=== PATIENT | male | born 1935 | race Caucasian/White ===

== ENCOUNTER 2018-06-03 18:57 | Emergency (ER) | payer MEDICARE, BC ==
--- NOTE | 2018-06-03 19:07 | UC ---
Head Injury HPI - HPI Summary HPI Summary: This is breanne Landis documenting for attending Fnrocío Malcolm MD. This patient is a 83 year old M presenting to [facility] with a chief complaint of head injury since 18:30 today. The patient reports that he slipped on his attic stairs and kit his head on the door frame. The patient denies any loss of consciousness. Patient reports a laceration to the left side of his forehead. The patient rates the pain 0/10 in severity. Symptoms aggravated by nothing. Symptoms alleviated by nothing. Patient denies any vision changes. He feels totally fine and denies any other complaints. The patient takes Doxazosin and Atenolol. - History Of Current Complaint Stated Complaint: HEAD INJURY Time Seen by Provider: 06/03/18 18:58 Hx Obtained From: Patient Onset/Duration: Sudden Onset, Lasting Hours - 1 hour, Still Present Severity Currently: None Pain Intensity: 0 Pain Scale Used: 0-10 Numeric Aggravating Factor(s): Nothing Alleviating Factor(s): Nothing Associated Signs And Symptoms: Negative: LOC (Time In Secs./Mins/Hrs), LOC Duration Unknown - Allergies/Home Medications Allergies/Adverse Reactions: Allergies Allergy/AdvReac Type Severity Reaction Status Date / Time No Known Allergies Allergy Verified 06/03/18 19:06 Home Medications: Home Medications Atenolol TAB* [Tenormin TAB* 25 MG] 06/03/18 [History] Doxazosin TAB* [Cardura TAB*] 06/03/18 [History] PMH/Surg Hx/FS Hx/Imm Hx Previously Healthy: Yes Other Endocrine History: negative Cardiovascular History: Hypertension Other Cardiovascular History: negative Other Respiratory History: negative Other GI/ History: negative Other Neurological History: negative Other Psychological History: negative Other Cancer History: negative - Surgical History Surgical History: None - Family History Known Family History: Positive: None - patient denies FHx Review of Systems Constitutional: Negative - negative fever Skin: Other - laceration to left forehead Eyes: Negative - negative vision changes ENT: Negative Respiratory: Negative Cardiovascular: Negative Gastrointestinal: Negative Genitourinary: Negative Motor: Negative Neurovascular: Negative Musculoskeletal: Negative Neurological: Negative - negative head pain Psychological: Negative Is Patient Immunocompromised?: No All Other Systems Reviewed And Are Negative: Yes Physical Exam - Summary Physical Exam Summary: Appearance: Well-Appearing, No Pain Distress, Well-Nourished, alert and oriented 3 Eyes: conjunctiva clear, no discharge HEENT: About a 4 cm laceration on the left forehead noted .EOMI and PERRLA intact. Hearing grossly normal, no muffled/hoarse voice. Neck: Normal, Supple Respiratory/Lung Sounds: Lungs clear, Normal breath sounds, No respiratory distress, No accessory muscle use Cardiovascular: RRR, No murmur Abdomen: Nontender, Soft, no guarding, not distended Bowel Sounds: Present Musculoskeletal: Normal Neurological: Cranial nerves intact ,muscle tone normal, motor and sensory intact. .GCS 15 Psychiatric:Normal, age appropriate behavior Skin: Normal, Warm, Dry, Normal color Triage Information Reviewed: Yes Vital Signs Reviewed: Yes Procedures - Laceration/Wound Repair #1 Location: head - forehead Laceration/Wound Explored: clean, no foreign body removed Closure: Single Layer Sterile Dressing Applied?: Yes 1 Location: head - left forehead Description: Linear - slightly rregular Anesthesia: Local, 2.0%, Lido Length, Depth and Shape: 4 cm ,2 mm deep Betadine Prep?: Yes Irrigated w/ Saline (ccs): 200 Laceration/Wound Explored: clean, no foreign body removed Closure: Single Layer - 6 syutures applied Debridement: none Suture Type: Nylon Head Injury Course/Dx - Course Course Of Treatment: During the visit today, we closed the laceration with 6 nylon sutures patient tolerated the procedure well,. We discussed the findings and further plan. I will prescribe the medication to the pharmacy . Nurse will call for the tetanus status and updated accordingly. Patient expressed understanding . - Differential Dx/Diagnosis Provider Diagnoses: head injury. laceration Discharge - Sign-Out/Discharge Documenting (check all that apply): Patient Departure - Discharge Plan Condition: Stable Disposition: HOME Prescriptions: Cephalexin CAP* [Keflex CAP*] 500 mg PO BID 7 Days #14 cap Patient Education Materials: Care For Your Stitches (ED), Laceration (ED) Additional Instructions: Please start taking the medication as prescribed to the pharmacy . Follow up in 1 week here for suture removal. Return to Urgent care / ER if symptoms get worse. - Billing Disposition and Condition Condition: STABLE Disposition: Home Images Head: 1 - Laceration 4 cm
[2018-06-03] MEDS ORDERED: Lidocaine 2% PF * 5 ML VIAL INJ ONE (19:17)
== END 2018-06-03 20:21 | disposition home or self-care (01) ==
LOC: UCEAST 18:57
DX: S09.90XA Unspecified injury of head, initial encounter (principal); S01.81XA Laceration without foreign body of other part of head, initial encounter; W10.9XXA Fall (on) (from) unspecified stairs and steps, initial encounter; Y93.89 Activity, other specified; Y92.008 Other place in unspecified non-institutional (private) residence as the place of occurrence of the external cause; I10 Essential (primary) hypertension
CPT/HCPCS: 12002; 12013; 99202; G0463

== ENCOUNTER 2018-06-10 13:50 | Emergency (ER) | payer MEDICARE, BC ==
--- NOTE | 2018-06-10 14:15 | UC ---
HPI Wound/Suture Re-check - HPI Summary HPI Summary: This is breanne Bender documenting for attending Francis Marie . This patient is a 83 year old M presenting to [facility] accompanied by another male for suture removal. Pt has a left sided head laceration that was sutured in the UC a week ago and he was told to return in a week for removal. Patient fell down some stairs and hit his head on a door jam. He has no complaints about the laceration and its healing. Pt has no complaints during this visit. - History Of Current Complaint Chief Complaint: UCLaceration Stated Complaint: SUTURE REMOVAL Time Seen by Provider: 06/10/18 14:05 Hx Obtained From: Patient Onset/Duration: Resolved Surgical Site: head Pain Intensity: 0 Pain Scale Used: 0-10 Numeric Surgery Date: 06/03/18 - Allergies/Home Medications Allergies/Adverse Reactions: Allergies Allergy/AdvReac Type Severity Reaction Status Date / Time No Known Allergies Allergy Verified 06/10/18 14:02 PMH/Surg Hx/FS Hx/Imm Hx Cardiovascular History: Hypertension GI/ History: Other Other GI/ History: NEGATIVE - Surgical History Surgical History: None - Family History Known Family History: Positive: None - patient denies FHx, Blood Disorder Negative: Diabetes, Renal Disease, Respiratory Disease, Seizure Disorder - Social History Alcohol Use: Daily Substance Use Type: None Smoking Status (MU): Current Some Day Smoker Type: Pipe Review of Systems Constitutional: Negative - fever Musculoskeletal: Negative - pain All Other Systems Reviewed And Are Negative: Yes Physical Exam - Summary Physical Exam Summary: General: well-appearing, no pain distress Skin: warm, color reflects adequate perfusion, dry, on the left sided of the scalp healing laceration the wound is closed no drainage no erythema Head: normal Eyes: EOMI, ANURADHA ENT: normal Neck: supple, nontender Respiratory: CTA, breath sounds present Cardiovascular: RRR Abdomen: soft, nontender Bowel: present Musculoskeletal: normal, strength/ROM intact Neurological: sensory/motor intact, A&O x3 Psychological: affect/mood appropriate Triage Information Reviewed: Yes Vital Signs: Initial Vital Signs Temp 98 F 06/10/18 14:00 Pulse 54 06/10/18 14:00 Resp 16 06/10/18 14:00 BP 125/67 06/10/18 14:00 Pulse Ox 98 06/10/18 14:00 Vital Signs Reviewed: Yes Procedures - Procedure Summary Procedure Summary: 6 sutures removed from the left side of the head. Well tolerated Course/Dx - Course Course Of Treatment: 6 SUTURES REMOVED - Differential Dx - Laceration/Wound Provider Diagnoses: SUTURE REMOVAL SCALP Discharge - Sign-Out/Discharge Documenting (check all that apply): Patient Departure - Discharge Plan Condition: Stable Disposition: HOME Patient Education Materials: Stitches Removal (ED) Referrals: Andres Coronado MD [Primary Care Provider] - Additional Instructions: FOLLOW UP WITH YOUR DOCTOR IF NEEDED. GET RECHECKED FOR ANY WORSENING OF YOUR CONDITION OR QUESTIONS OR CONCERNS. - Billing Disposition and Condition Condition: STABLE Disposition: Home Attestation Statement Scribe Attestation: This is breanne Bender documenting for attending Francis Marie . User Type: Provider with Scribe Provider Attestation: The documentation recorded by the scribe accurately reflects the service I personally performed and the decisions made by me.
== END 2018-06-10 14:30 | disposition home or self-care (01) ==
LOC: UCEAST 13:50
DX: S01.01XD Laceration without foreign body of scalp, subsequent encounter (principal); W10.9XXD Fall (on) (from) unspecified stairs and steps, subsequent encounter; Z72.0 Tobacco use
CPT/HCPCS: 99211; G0463

== ENCOUNTER 2021-01-01 10:56 | Inpatient (IN) ==
[2021-01-01 12:27] LABS: ABS Basophils 0.1 10^3/ul (0-0.2); ABS Lymphocytes 0.9 10^3/ul (1.0-4.8); ABS Monocytes 0.7 10^3/ul (0-0.8); ABS Neutrophils 5.4 10^3/ul (1.5-7.7); Eosinophil % 0.3 %; Hematocrit 42 % (42-52); Hemoglobin 14.7 g/dL (14.0-18.0); Lymphocyte % 12.6 %; Mean Corpuscular HGB Conc 35 g/dL (31-36); Mean Corpuscular Hemoglobin 35 pg (27-31); Mean Corpuscular Volume 100 fL (80-94); Mean Platelet Volume 9.1 fL (7.4-10.4); Platelet Count 199 10^3/uL (150-450); Red Blood Count 4.17 10^6 /uL (4.18-5.48); Red Cell Distribution Width 13 % (10-15); White Blood Count 7.1 10^3/uL (3.5-10.8)
[2021-01-01 12:44] LABS: Albumin 3.8 g/dL (3.2-5.2); Albumin/Globulin Ratio 1.4 (1-3); BUN/Creatinine Ratio 15.7 (8-20); Calcium 8.7 mg/dL (8.6-10.3); EGFR African American 106.5 (>60); EGFR Non-African American 88.1 (>60); Globulin 2.7 g/dL (2-4); Potassium 3.8 mmol/L (3.5-5.0); Total Bilirubin 0.6 mg/dL (0.2-1.0); Total Protein 6.5 g/dL (6.4-8.9)
[2021-01-01 13:12] LABS: TSH Ultra Thyroid Stim Horm 1.93 mcIU/mL (0.34-5.60)
[2021-01-01 14:10] LABS: Urine Appearance Clear; Urine Bilirubin Negative (Negative); Urine Blood Negative (Negative); Urine Color Yellow; Urine Glucose Negative (Negative); Urine Ketones Negative (Negative); Urine Nitrite Negative (Negative); Urine Protein Negative (Negative); Urine Specific Gravity 1.009 (1.010-1.030); Urine Urobilinogen Negative (Negative)
[2021-01-01] MEDS ORDERED: Ondansetron 4 mg VIAL 2 MG/ML 2 ml VIAL IV PRN (15:59)
[2021-01-01] MEDS ORDERED: Nicotine Lozenge mini 2 MG LOZNG.MINI MT PRN (16:01)
[2021-01-01 16:47] LABS: Folate 18.07 ng/mL (>3.99)
[2021-01-01 16:55] LABS: HDL Cholesterol 101.3 mg/dL
[2021-01-01] MEDS: Enoxaparin 40 MG/0.4 ML SYR SUBCUT SCH (21:09)
[2021-01-02 05:41] LABS: ABS Basophils 0.1 10^3/ul (0-0.2); ABS Eosinophils 0.1 10^3/ul (0-0.6); ABS Lymphocytes 1.4 10^3/ul (1.0-4.8); ABS Monocytes 0.8 10^3/ul (0-0.8); ABS Neutrophils 3.8 10^3/ul (1.5-7.7); Hematocrit 43 % (42-52); Hemoglobin 14.6 g/dL (14.0-18.0); Lymphocyte % 22.9 %; Mean Corpuscular HGB Conc 34 g/dL (31-36); Mean Corpuscular Hemoglobin 35 pg (27-31); Mean Corpuscular Volume 102 fL (80-94); Mean Platelet Volume 9.2 fL (7.4-10.4); Platelet Count 186 10^3/uL (150-450); Red Blood Count 4.19 10^6 /uL (4.18-5.48); Red Cell Distribution Width 13 % (10-15); White Blood Count 6.3 10^3/uL (3.5-10.8)
[2021-01-02 06:00] LABS: BUN/Creatinine Ratio 21.3 (8-20); Calcium 8.8 mg/dL (8.6-10.3); EGFR African American 111.2 (>60); EGFR Non-African American 91.9 (>60); Potassium 4.5 mmol/L (3.5-5.0)
[2021-01-02] MEDS: Nicotine PATCH 21 MG/24 HR PATCH TRANSDERM SCH (08:45)
[2021-01-02] MEDS: Enoxaparin 40 MG/0.4 ML SYR SUBCUT SCH (20:18)
[2021-01-03 05:37] LABS: ABS Basophils 0.1 10^3/ul (0-0.2); ABS Eosinophils 0.1 10^3/ul (0-0.6); ABS Lymphocytes 1.5 10^3/ul (1.0-4.8); ABS Monocytes 0.9 10^3/ul (0-0.8); ABS Neutrophils 3.5 10^3/ul (1.5-7.7); Eosinophil % 2.2 %; Hematocrit 39 % (42-52); Hemoglobin 13.7 g/dL (14.0-18.0); Lymphocyte % 24.6 %; Mean Corpuscular HGB Conc 35 g/dL (31-36); Mean Corpuscular Hemoglobin 35 pg (27-31); Mean Corpuscular Volume 101 fL (80-94); Mean Platelet Volume 9.2 fL (7.4-10.4); Platelet Count 184 10^3/uL (150-450); Red Blood Count 3.89 10^6 /uL (4.18-5.48); Red Cell Distribution Width 13 % (10-15); White Blood Count 6.1 10^3/uL (3.5-10.8)
[2021-01-03 05:54] LABS: BUN/Creatinine Ratio 28.4 (8-20); Calcium 8.9 mg/dL (8.6-10.3); EGFR African American 121.6 (>60); EGFR Non-African American 100.5 (>60); Magnesium 2.1 mg/dL (1.9-2.7); Potassium 4.3 mmol/L (3.5-5.0)
[2021-01-03] MEDS: Nicotine PATCH 21 MG/24 HR PATCH TRANSDERM SCH (07:57)
[2021-01-03] MEDS ORDERED: NS 0.9% 1000 ml BAG 1,000 ML IV ONE (10:08)
[2021-01-03 11:45] LABS: Vitamin D Total 25(OH) 23.8 ng/mL (20-50)
[2021-01-03 12:03] LABS: C Reactive Protein 1.91 mg/L (<8.01)
[2021-01-03] MEDS: Enoxaparin 40 MG/0.4 ML SYR SUBCUT SCH (21:02)
[2021-01-04] MEDS: Nicotine PATCH 21 MG/24 HR PATCH TRANSDERM SCH (07:02)
[2021-01-04 08:41] LABS: ABS Basophils 0.1 10^3/ul (0-0.2); ABS Eosinophils 0.1 10^3/ul (0-0.6); ABS Lymphocytes 1.3 10^3/ul (1.0-4.8); ABS Monocytes 0.6 10^3/ul (0-0.8); ABS Neutrophils 3.3 10^3/ul (1.5-7.7); Hematocrit 39 % (42-52); Hemoglobin 13.9 g/dL (14.0-18.0); Lymphocyte % 23.8 %; Mean Corpuscular HGB Conc 35 g/dL (31-36); Mean Corpuscular Hemoglobin 35 pg (27-31); Mean Corpuscular Volume 100 fL (80-94); Mean Platelet Volume 8.8 fL (7.4-10.4); Platelet Count 192 10^3/uL (150-450); Red Blood Count 3.92 10^6 /uL (4.18-5.48); Red Cell Distribution Width 13 % (10-15); White Blood Count 5.4 10^3/uL (3.5-10.8)
[2021-01-04] MEDS: Enoxaparin 40 MG/0.4 ML SYR SUBCUT SCH (20:25)
[2021-01-05 05:49] LABS: ABS Basophils 0.1 10^3/ul (0-0.2); ABS Eosinophils 0.2 10^3/ul (0-0.6); ABS Lymphocytes 1.6 10^3/ul (1.0-4.8); ABS Monocytes 0.8 10^3/ul (0-0.8); ABS Neutrophils 3.4 10^3/ul (1.5-7.7); Eosinophil % 2.7 %; Hematocrit 41 % (42-52); Hemoglobin 14.3 g/dL (14.0-18.0); Lymphocyte % 26.4 %; Mean Corpuscular HGB Conc 35 g/dL (31-36); Mean Corpuscular Hemoglobin 35 pg (27-31); Mean Corpuscular Volume 100 fL (80-94); Mean Platelet Volume 8.9 fL (7.4-10.4); Platelet Count 194 10^3/uL (150-450); Red Blood Count 4.05 10^6 /uL (4.18-5.48); Red Cell Distribution Width 13 % (10-15)
[2021-01-05 06:13] LABS: BUN/Creatinine Ratio 30.7 (8-20); Calcium 8.5 mg/dL (8.6-10.3); EGFR African American 119.8 (>60); Potassium 3.8 mmol/L (3.5-5.0)
[2021-01-05] MEDS: Nicotine PATCH 21 MG/24 HR PATCH TRANSDERM SCH (07:23)
[2021-01-05] MEDS: Polyethylene Glycol 3350 17 GM PACKET PO PRN (18:26)
[2021-01-05] MEDS: Magnesium Hydroxide LIQ 30 ML UDC PO PRN (18:26)
[2021-01-05] MEDS: Senna TAB 8.6 mg TAB PO PRN (18:26)
[2021-01-05] MEDS: Enoxaparin 40 MG/0.4 ML SYR SUBCUT SCH (21:08)
[2021-01-06] MEDS: Nicotine PATCH 21 MG/24 HR PATCH TRANSDERM SCH (09:21)
[2021-01-06] MEDS: Magnesium Hydroxide LIQ 30 ML UDC PO PRN (09:34)
[2021-01-06] MEDS: Senna TAB 8.6 mg TAB PO PRN (09:34)
[2021-01-06] MEDS: Enoxaparin 40 MG/0.4 ML SYR SUBCUT SCH (21:07)
[2021-01-07] MEDS: Nicotine PATCH 21 MG/24 HR PATCH TRANSDERM SCH (08:13)
[2021-01-07] MEDS: Enoxaparin 40 MG/0.4 ML SYR SUBCUT SCH (21:45)
[2021-01-08] MEDS: Magnesium Hydroxide LIQ 30 ML UDC PO PRN (10:48)
[2021-01-08] MEDS: Polyethylene Glycol 3350 17 GM PACKET PO PRN (10:49)
[2021-01-08] MEDS: Nicotine PATCH 21 MG/24 HR PATCH TRANSDERM SCH (10:51)
[2021-01-08] MEDS: Enoxaparin 40 MG/0.4 ML SYR SUBCUT SCH (20:09)
[2021-01-09 08:00] VITALS: BP 137/66
[2021-01-09] MEDS ORDERED: Influenza VAC *QUAD* 2020-21* 0.5 ML SYRINGE IM ONE ×2 (09:28→10:00)
[2021-01-09] MEDS: Nicotine PATCH 21 MG/24 HR PATCH TRANSDERM SCH (09:44)
== END 2021-01-09 11:44 | disposition home health service (06) | DRG 312 ==
LOC: MEDTELE 10:56 → ED 10:56 → SUATTDRO 15:59 → MEDTELE 17:21
PROVIDERS: ADMIT Student in an Organized Health Care Education/Training Program; ATTEND Internal Medicine

== ENCOUNTER 2022-11-08 15:09 | Inpatient (IN) ==
[2022-11-08] MEDS ORDERED: Iodixanol (CONTRAST) 320 MG/ML 100 ML SDV IV ONE (15:30)
[2022-11-08 15:43] LABS: ABS Basophils 0.1 10^3/ul (0-0.2); ABS Eosinophils 0.1 10^3/ul (0-0.6); ABS Lymphocytes 1.4 10^3/ul (1.0-4.8); ABS Monocytes 0.7 10^3/ul (0-0.8); ABS Neutrophils 4.3 10^3/ul (1.5-7.7); Eosinophil % 1.3 %; Hematocrit 40 % (42-52); Hemoglobin 13.4 g/dL (14.0-18.0); Lymphocyte % 21.1 %; Mean Corpuscular HGB Conc 34 g/dL (31-36); Mean Corpuscular Hemoglobin 33 pg (27-31); Mean Corpuscular Volume 99 fL (80-94); Mean Platelet Volume 9.2 fL (7.4-10.4); Platelet Count 226 10^3/uL (150-450); Red Blood Count 4.01 10^6 /uL (4.18-5.48); Red Cell Distribution Width 14 % (10-15); White Blood Count 6.6 10^3/uL (3.5-10.8)
[2022-11-08 15:51] LABS: Activated Partial Thrombo Time 31.9 seconds (26.0-38.0); INR 0.95 (0.88-1.18)
[2022-11-08 16:46] LABS: Albumin 3.9 g/dL (3.2-5.2); Albumin/Globulin Ratio 1.6 (1-3); Calcium 8.8 mg/dL (8.6-10.3); Globulin 2.5 g/dL (2-4); HDL Cholesterol 102.5 mg/dL; Potassium 3.9 mmol/L (3.5-5.0); Total Bilirubin 0.5 mg/dL (0.2-1.0); Total Protein 6.4 g/dL (6.4-8.9)
[2022-11-08] MEDS ORDERED: Labetalol IV 5 MG/ML 20 ml VIAL IV PUSH PRN ×2 (18:40→21:38)
[2022-11-08 21:58] LABS: C Reactive Protein 2.83 mg/L (<8.01)
[2022-11-09 05:53] LABS: ABS Basophils 0.1 10^3/ul (0-0.2); ABS Eosinophils 0.3 10^3/ul (0-0.6); ABS Lymphocytes 1.8 10^3/ul (1.0-4.8); ABS Monocytes 1.1 10^3/ul (0-0.8); ABS Neutrophils 5.2 10^3/ul (1.5-7.7); Eosinophil % 3.1 %; Hematocrit 38 % (42-52); Hemoglobin 13.2 g/dL (14.0-18.0); Lymphocyte % 21.4 %; Mean Corpuscular HGB Conc 35 g/dL (31-36); Mean Corpuscular Hemoglobin 35 pg (27-31); Mean Corpuscular Volume 98 fL (80-94); Mean Platelet Volume 9.4 fL (7.4-10.4); Platelet Count 208 10^3/uL (150-450); Red Blood Count 3.83 10^6 /uL (4.18-5.48); Red Cell Distribution Width 13 % (10-15); White Blood Count 8.4 10^3/uL (3.5-10.8)
[2022-11-09 06:09] LABS: Calcium 8.7 mg/dL (8.6-10.3); Potassium 4.4 mmol/L (3.5-5.0)
[2022-11-12 11:26] VITALS: BP 115/64
== END 2022-11-12 14:06 | disposition home or self-care (01) | DRG 65 ==
LOC: EDHOLD 15:09 → ED 15:09 → SUATTDRO 18:09 → MEDTELE 20:05 → SUATTDRO 11-10 14:13
PROVIDERS: ADMIT Internal Medicine; ATTEND Hospitalist